=== PATIENT | female | born 1980 | race Caucasian/White ===

== ENCOUNTER 2017-01-25 06:04 | Day surgery (SDC) | payer BC, OTHER ==
[~2017-01-25] VITALS: Ht 162.6 cm; Wt 111.6 kg
--- NOTE | ~2017-01-25 | S ---
[facility] [place] [address] SURGICAL PATH RPT PROCEDURE Name: BARBARA MITCHELL Room #: [facility].#: [id number] Admission: 01/25/17 Date of : 84 Discharge: 01/25/17 Report #: [id number] Path Case #: [id number] PATHOLOGY REPORT COLLECTION DATE: 01/25/2017 RECEIVED DATE: 01/26/2017 SUBMITTING PHYS: Dr. Mathieu Mauricio OTHER PHYS: Dr. Sanchez Quintanilla SPECIMEN(S) RECEIVED: A.Gallbladder * * * * * * * * * * * * FINAL DIAGNOSIS: Gallbladder, cholecystectomy: - Chronic cholecystitis, mild. - No gallstones present. (SKM:tammi; 01/27/2017) PATHOLOGIST: Armen Montalvo M.D. REPORT ELECTRONICALLY SIGNED BY: Armen Montalvo M.D. DATE/TIME: 01/30/2017 09:08 * * * * * * * * * * * * GROSS PATHOLOGY: Received in formalin labeled "Barbraa Mitchell, gallbladder," is a 8.3 x 2.8 x 2.1 cm, previously opened gallbladder with green farias serosal surfaces. Opening the gallbladder reveals velvety and light green mucosa and an average wall thickness of 0.1 cm. Calculi are not present and no masses are noted grossly. Operations And Maintenance Technican sections from the body and fundus are submitted along with the proximal margin in cassette A1. (OSKAR; 01/26/2017) CLINICAL HISTORY: Biliary dyskinesia INITIAL CPT CODE(S): A; 21780 Professional services performed by [facility] at [facility] [address], [place] [address] Technical services performed by [facility] at [address] [place] [id number]. [facility] [address] [place] [address] SURGICAL PATH RPT PROCEDURE Name: BRIANNABARBARA BRENNER Room #: [facility]P [facility] Juan Alberto#: [id number] Admission: 01/25/17 Date of : 84 Discharge: 01/25/17 Report #: [id number] Path Case #: [id number] [facility] [address] [address] PHONE: [phone] DIRECTOR: Mike Clement M.D. * * * END OF REPORT * * *
--- NOTE | ~2017-01-25 | EKG ---
[place] [address] [facility] [place] [address] ELECTROCARDIOGRAM REPORT Name: RONAL TERRY Room #: [facility]#: [id number] Admission: 01/25/17 Attend Phys: Mathieu Mauricio MD Discharge: 01/25/17 Date of : 84 Report #: [id number] THIS REPORT FOR: //name// [facility] Test Date: 2017-01-25 Test Time: 11:18:59 Pat Name: RONAL TERRY Department: Room: 150 7 Gender: F Puller Out: FRANCESCA : 1980 Requested By: Mathieu Mauricio Order Number: [id number] MD: Alfredo Beyer Measurements Intervals [place] Rate: 87 P: 39 NV: 156 QRS: -21 QRSD: 85 T: 15 QT: 357 QTc: 430 Interpretive Statements Sinus rhythm Borderline left axis deviation Low voltage, precordial leads Consider anterior infarct No previous ECG available for comparison Electronically Signed On 01-26-2017 16:57:01 CDT by Alfredo Beyer [email or web address] <ELECTRONICALLY SIGNED> By: Alfredo Beyer MD 01/26/17 1657 1118 111 Alfredo Beyer MD /[email or web address]
[~2017-01-25 06:04] MED LIST: CELEXA10 MG PO; FOLIC ACID1 MG PO; GLUCOPHAGE XR750 MG PO; TRINATE TABLET1 TAB PO; VENTOLIN HFA 1818 GM INH; ZANTAC 150MG T150 MG PO; ZYRTEC10 M5 PO
[2017-01-25 11:00] LABS: HEMATOCRIT 42.7 % (37.0-47.0); HEMOGLOBIN 14.8 gm/dL (12.0-15.0)
[2017-01-25 11:16] VITALS: BP 134/77
[2017-01-25] MEDS ORDERED: COLACE100 MG PO (15:55)
[2017-01-25] MEDS ORDERED: ZOFRAN ODT4 MG DISSOLVE (15:55)
[2017-01-25] MEDS ORDERED: HYDROCODONE-AP1 EAC6 PO (15:55)
[2017-01-25 16:39] VITALS: BP 134/77
== END 2017-01-25 17:05 | disposition home or self-care (01) ==
LOC: OR 06:04 → TBA 06:04 → OR 12:30
PROVIDERS: Otolaryngology
DX: K81.1 Chronic cholecystitis (principal); K82.8 Other specified diseases of gallbladder
CPT/HCPCS: 49000; 50010; 50101; 50411; 50555; 50558; 50900; 50962; 51975; 52265; 52287; 54022; 54118; 56525; 56526; 56632; 56641; 57006; 62110; 62900; 70005